=== PATIENT | male | born 1990 | race Native Hawaiian/Other Pacific Islander ===

== ENCOUNTER 2021-05-01 08:00 | Emergency (ER) | payer OTHER ==
[~2021-05-01] VITALS: Ht 177.8 cm; Wt 72.6 kg
[2021-05-01 08:07] VITALS: BP 94/72; TEMP 97.4
== END 2021-05-01 08:38 | disposition still patient (30) ==
LOC: ED 08:05
DX: I48.20 Chronic atrial fibrillation, unspecified (principal); Z53.29 Procedure and treatment not carried out because of patient's decision for other reasons
CPT/HCPCS: 93005; 99283